=== PATIENT | female | born 1955 | race Caucasian/White ===

== ENCOUNTER 2016-09-11 10:24 | Day surgery (SDC) | payer MEDICARE, MEDICAID ==
[~2016-09-11] VITALS: Ht 144.8 cm; Wt 51.7 kg
== END 2016-09-11 13:38 | disposition short-term general hospital (02) ==
LOC: SURGOP 10:24
PROC: 08B8XZZ Excision of Right Cornea, External Approach (ICD-10-PCS; principal; 2016-09-11)
DX: H18.451 Nodular corneal degeneration, right eye (principal); E78.5 Hyperlipidemia, unspecified; M81.0 Age-related osteoporosis without current pathological fracture; M19.90 Unspecified osteoarthritis, unspecified site; Z88.1 Allergy status to other antibiotic agents; Z79.899 Other long term (current) drug therapy
CPT/HCPCS: J0171; J2250; J3473